=== PATIENT | male | born 1945 | race Caucasian/White ===

== ENCOUNTER 2018-03-12 08:45 | Inpatient (IN) | payer MEDICARE ==
[2018-03-24] MEDS ORDERED: CEFAZOLIN 2 GM/50 ML-DEXTROSE 2 GM in Premix Bag 1 BAG IVPB SCH (10:30)
[2018-03-24] MEDS ORDERED: Vancomycin HCl 1.5 GM in Sodium Chloride 0.9% 250 ML 300 ML IVPB SCH (10:30)
[2018-03-24] MEDS ORDERED: Sodium Chloride 0.9% 100 ML ONE (10:38)
[2018-03-24] MEDS ORDERED: Tranexamic Acid 1,000 MG/10 ML VIAL ONE (10:38)
[2018-03-24] MEDS ORDERED: CEFAZOLIN 2 GM/50 ML BAG ONE (10:38)
[2018-03-24] MEDS ORDERED: Promethazine HCl 25 MG/ML VIAL IM PRN ×2 (11:07→11:45)
[2018-03-24] MEDS ORDERED: HYDROcodone/Acetaminophen 10/325 mg Tablet PO PRN ×2 (11:07)
[2018-03-24] MEDS ORDERED: Zolpidem Tartrate 5 MG TAB PO PRN ×2 (11:07→11:45)
[2018-03-24] MEDS ORDERED: Ondansetron PF 4 MG/2 ML Vial IVP PRN ×2 (11:07→11:45)
[2018-03-24] MEDS ORDERED: traMADol HCl 50 MG TAB PO PRN ×2 (11:07→11:45)
[2018-03-24] MEDS ORDERED: Fentanyl 100 MCG/2 ML VIAL SLOW IVP PRN (11:07)
[2018-03-24] MEDS ORDERED: diphenhydrAMINE 25 MG CAP PO PRN ×2 (11:07→11:45)
[2018-03-24] MEDS ORDERED: Bupivacaine 0.75% W/DEXTROSE 8.25% 2 ML AMP ONE (11:27)
[2018-03-24] MEDS ORDERED: Midazolam HCl 5 mg/5 ml Vial ONE (11:36)
[2018-03-24] MEDS ORDERED: Fentanyl 100 MCG/2 ML VIAL ONE (11:37)
[2018-03-24] MEDS ORDERED: Acetaminophen 1,000 MG in Premix Bag 1 BAG IVPB PRN (11:44)
[2018-03-24] MEDS ORDERED: Promethazine HCl 25 MG SUPP PR PRN (11:45)
[2018-03-24] MEDS ORDERED: diphenhydrAMINE 50 MG/ML VIAL IM PRN (11:45)
[2018-03-24] MEDS ORDERED: Naloxone HCl 0.4 mg/ml Vial IV PRN (11:45)
[2018-03-24] MEDS ORDERED: diphenhydrAMINE 50 MG/ML VIAL IVP PRN (11:45)
[2018-03-24] MEDS ORDERED: Naloxone HCl 0.4 mg/ml Vial IVP PRN (11:45)
[2018-03-24] MEDS ORDERED: HYDROcodone/Acetaminophen 5/325 mg Tablet PO PRN (11:45)
[2018-03-24] MEDS ORDERED: Hydrocerin (Eucerin) Cream 120 gm Jar TOP PRN (11:45)
[2018-03-24] MEDS ORDERED: Bupivacaine 0.25% 10 ML VIAL EPIDURAL PRN (11:45)
[2018-03-24] MEDS ORDERED: Fentanyl/Bupivacaine 100 ML EPIDURAL ONE (13:35)
[2018-03-24] MEDS ORDERED: CEFAZOLIN 2 GM/50 ML BAG IVPB SCH (14:00)
[2018-03-24] MEDS ORDERED: Ketorolac Tromethamine 30 MG/ML VIAL IM SCH (14:00)
--- NOTE | 2018-03-24 14:28 | RAD ---
RIGHT HIP TWO VIEWS: History: 72-year-old male with history of post op total hip. FINDINGS/IMPRESSION: Recent post op total hip replacement without dislocation or periprosthetic fracture or other acute pr ocess. POS: [facility]
[2018-03-24] MEDS ORDERED: Ondansetron PF 4 MG/2 ML Vial ONE (15:09)
[2018-03-24 15:52] VITALS: BMI 31.1
[2018-03-24] MEDS: Sodium Chloride 0.9% 1,000 ML IV SCH ×2 (16:46→21:00)
--- NOTE | 2018-03-24 16:58 | OP ---
PREOPERATIVE DIAGNOSIS: Degenerative joint disease, right hip. POSTOPERATIVE DIAGNOSIS: Degenerative joint disease, right hip. SURGEON: Robin Camarena MD. SHREDDING MACHINE TENDER: Nick Mesa PA-C. BLOOD LOSS: 200 mL. ANESTHESIA: Spinal. TITLE OF PROCEDURE: Right total hip arthroplasty using an Accolade 3.5 stem with a 54 mm cup X3 line r and a 36 mm standard head. PROCEDURE IN DETAIL: After informed consent was obtained in the preoperative holding area, the patie nt was taken to the operative suite where spinal anesthesia was induced. The patient was then positi oned in the lateral decubitus position. The hip was then prepped and draped in usual sterile fashion . The patient received preoperative antibiotics. Prior to incision, time-out was called, and all me mbers of the surgical team agreed upon site, surgeon, and patient. After this, a longitudinal incisi on was made directly over the trochanter, noted by palpation extending 2 fingerbreadths above and bel ow the trochanter. The deeper subcutaneous layer was undermined with Bovie electrocautery. The ilio tibial band was encountered and incised sharply and the plane below this was developed bluntly. [facility] to hold this opened. The lateral aspect of the trochanter and the abduct or muscles were encountered and then reflected anteriorly off the trochanter using Bovie electrocaute ry. Once this was completed, the anterior capsule was then encountered and identified, and copious c apsulotomy was carried out, exposing the femoral neck and head. Dislocation maneuver was then perform ed and an in situ provisional neck cut was then made using the oscillating saw. Attention was then t urned to acetabular preparation and sequential reaming was carried out up to the appropriate diameter and a trial was then malleted into place with good firm resistance and no pullout. The permanent ac etabular shell was then malleted squarely into place, as was the appropriate liner. Once completed, the wound was copiously irrigated, and attention was then turned to femoral preparation. Flexion and external rotation was performed of the exposed thigh and femoral elevators were then placed at the pr oximal aspect of the wound. Canal finder was used to establish the length of the canal and sequentia l reaming was carried out, followed by broaching. Once the appropriate stability was established wit h the trial broaches with both flexion, extension and rotational stability, we did trial with neutral and 2 mm offset incremental necks. Once the appropriate size was decided upon, with good stability noted with flexion, extension, internal and external rotation and shuck being negative, we removed th e femoral trial broach and malletted into place the permanent prosthesis with good firm fit, which wa s also stable to rotation. Again, the hip felt very stable to flexion, extension, internal and exter nal rotation. Leg lengths appeared near anatomic clinically and we were quite happy with prosthesis placement. Copious irrigation was then carried out through the entirety of the wound. Primary closu re of the abductors was accomplished with interrupted #2 Vicryl [id number] stitches and the IT b and was then closed with interrupted #2 Vicryl, oversewn with a #2 running barbed Quill stitch. Subc utaneous fascia was closed with running barbed Quill stitch and a subcuticular Monocryl barbed Quill stitch was used for skin closure and augmented with skin cement. A sterile dressing was applied. The procedure was terminated without any complication. All counts were correct. The patient was awaken ed in the operative suite and taken to the recovery room in stable condition.
--- NOTE | 2018-03-24 19:38 | ULT ---
BILATERAL LOWER EXTREMITY VENOUS DUPLEX STUDY: 03/24/18 INDICATION: Bilateral lower extremity pain and edema. Recent hip surgery. Deep veins of both lower extremities show normal blood flow and compression with color doppler and sp ectral analysis and compression studies. There is no evidence of DVT. IMPRESSION: No evidence of lower extremity DVT. POS: [facility]
[2018-03-24] MEDS: CEFAZOLIN 2 GM/50 ML BAG IVPB SCH (20:57)
--- NOTE | 2018-03-24 20:57 | CON ---
DATE OF CONSULTATION: 03/24/2018 PRIMARY CARE PHYSICIAN: Andrew Ruiz M.D. ATTENDING PHYSICIAN: Robin Camarena M.D. REASON FOR CONSULT: Aid in medical management. HISTORY OF PRESENT ILLNESS: Mr. Maria is a pleasant 72-year-old gentleman that has a history of hypertension as well as coronary artery disease, and obstructive sleep apnea. He has been having di fficulty with pain in his right hip for quite some time. He has failed conservative treatment and he is being admitted for an elective right total hip replacement. When I see the patient, he is postop and essentially has no complaints at this time. In review of his preop evaluations, he was seen by Dr. Sharif prior to admission. He has a history of coronary artery disease, in which he has 3-vessel heart disease, which was deemed nonoperable due to previous episodes of what sounds like a cardiac ar rest following major surgery. For this reason, the patient had multiple stents placed. He was seen by Dr. Sharif and cleared for this surgery, which was done under epidural anesthesia. The patient cur rently denies any chest pain or difficulty breathing. He denies any headaches or dizziness. No naus ea, no vomiting. We have been asked to aid in medical management. REVIEW OF SYSTEMS: All systems were reviewed and are negative except for that mentioned in the histo ry of present illness. PAST MEDICAL HISTORY: Significant for coronary artery disease, hypertension, obstructive sleep apnea , diverticulosis, chronic kidney disease stage 3, anemia in chronic kidney disease, depression, and g astroesophageal reflux disease, and also history of what sounds like a severe angioedema and cardiac arrest, which would occur a day following a major surgery. PAST SURGICAL HISTORY: He has had multiple coronary stents, a lumbar decompression surgery, hemorrho id surgery, hernia repair, and cataract surgery. ALLERGIES: YULI INHIBITORS, CODEINE, HYDROCHLOROTHIAZIDE, and OLMESARTAN. FAMILY HISTORY: Significant for a father who had a blood cancer, heart disease also in his father. His mother had breast cancer and Alzheimer disease also runs in the family. SOCIAL HISTORY: He is a nonsmoker, nondrinker. He is and he would like to be a FULL CODE. CURRENT MEDICATIONS: Amlodipine 5 mg daily, aspirin 81 mg daily, Cymbalta 60 mg daily, Zetia 10 mg d aily, Lasix 40 mg daily, levothyroxine 50 mcg daily, metoprolol succinate 50 mg daily, rabeprazole 20 mg twice daily, and Flomax 0.4 mg daily. PHYSICAL EXAMINATION: GENERAL: He is alert and oriented. He appears to be in no acute distress. He is well developed and well nourished. VITAL SIGNS: Blood pressure was 150/89, heart rate 62, respiratory rate of 20, and temperature is 97 .3. HEENT: Pupils are equal, round, and reactive. Extraocular muscles are intact. Sclerae are anicteri c. Throat: There is no erythema, no exudates. NECK: No adenopathy, no bruits. LUNGS: He has got basilar wheezing and some rhonchi, but there were no rales. CARDIOVASCULAR: He had a normal S1 and S2. There is no S3 or S4. No murmurs, clicks, or rubs. ABDOMEN: Obese, it is soft, it is nontender, nondistended. Positive for bowel sounds. There is no rebound, no guarding. EXTREMITIES: His right leg is smaller in circumference than the left; however, there does not appear to be any pitting edema. There is no warmth, no erythema. He has got palpable dorsalis pedis pulse s bilaterally. NEUROLOGICAL: The exam is grossly nonfocal with his muscle strength being 5/5 in both of his upper a nd lower extremities. SKIN AND INTEGUMENT: There is no skin changes and no rashes. LABORATORY DATA: Currently, there are no labs to review. He did have blood work done on 03/19/2018, the CBC and chemistry panel was reviewed and essentially negative. His hemoglobin was slightly low at 12.8, hematocrit is 41.1, creatinine was 1.6. ASSESSMENT AND PLAN: This is a pleasant 72-year-old gentleman who is being admitted for a right tota l hip replacement. He has had a surgery done under epidural anesthesia. This was to avoid any cardi opulmonary compromise following surgery which has happened in the past. Clinically, the patient appe ars stable. Agree with restarting his medications from home. 1. For hypertension, again agree with restarting amlodipine and we will hold off on any p.r.n. medic ations for blood pressure unless his pressure is extremely elevated such as greater than 180 systolic due to his history of having what sounds like anaphylactoid type reactions. Hopefully, his blood pr essure can be managed with amlodipine alone. 2. Coronary artery disease. This appears to be clinically stable. We will continue aspirin and met oprolol. 3. Leg circumference discrepancy. It is unclear whether or not this is something that had been pres ent prior to admission. He has had lumbar surgery in the past and his right leg may actually have so me degree of muscle atrophy due to longstanding nerve damage. However, his who is at [facility] says his legs have been the same size. Therefore, we will go ahead and get a stat venous ultrasoun d to rule out deep venous thrombosis. 4. Chronic kidney disease. We will likely get a chemistry panel in the morning and follow his renal function periodically.
[2018-03-24] MEDS: Ferrous Gluconate 324 MG TAB PO SCH (20:59)
[2018-03-24] MEDS: Aspirin 81 mg Enteric Coated Tablet PO SCH (20:59)
[2018-03-25] MEDS: CEFAZOLIN 2 GM/50 ML BAG IVPB SCH (04:59)
[2018-03-25 05:47] LABS: Hemoglobin 11.9 g/dL (14.0-18.0); Mean Corpuscular HGB CONC 31.3 g/dL (32.0-36.0); Mean Corpuscular Hemoglobin 25.7 pg (27.0-31.0); Mean Corpuscular Volume 82.1 fL (78.0-98.0); Mean Platelet Volume 7.6 fL (7.4-10.4); Platelet Count 219 thou/uL (130-400); Red Blood Cell (RBC) Count 4.62 mill/uL (4.70-6.10); White Blood Cell (WBC) Count 11.2 thou/uL (4.8-10.8)
[2018-03-25 06:05] LABS: Anion Gap 12 mmol/L (10-20); BUN (Urea Nitrogen) 23 mg/dL (8.4-25.7); Calc. Creatinine Clearance 63 mL/min (70-130); Calcium 8.7 mg/dL (7.8-10.44); Carbon Dioxide 24 mmol/L (23-31); Chloride 107 mmol/L (98-107); Estimated GFR-MDRD 45; Glucose 113 mg/dL (83-110); Potassium 4.5 mmol/L (3.5-5.1); Sodium 138 mmol/L (136-145)
[2018-03-25] MEDS: Fentanyl/Bupivacaine 100 ML EPIDURAL SCH ×2 (06:52→22:48)
[2018-03-25] MEDS: Sodium Chloride 0.9% 1,000 ML IV SCH ×2 (07:40→10:49)
[2018-03-25] MEDS: HYDROcodone/Acetaminophen 5/325 mg Tablet PO PRN (07:49)
[2018-03-25] MEDS: DULoxetine 60 MG CAP PO SCH (08:27)
[2018-03-25] MEDS: Ferrous Gluconate 324 MG TAB PO SCH ×2 (08:27→19:54)
[2018-03-25] MEDS: Aspirin 81 mg Enteric Coated Tablet PO SCH ×2 (08:27→19:53)
[2018-03-25] MEDS: Multivitamin W/ Minerals 1 TAB PO SCH (08:27)
[2018-03-25] MEDS: Senokot S 8.6-50 MG TAB PO SCH ×2 (08:27→19:54)
[2018-03-25] MEDS: Levothyroxine Sodium 50 MCG TAB PO SCH (08:28)
[2018-03-25] MEDS: Amlodipine 5 MG TAB PO SCH (08:28)
[2018-03-25] MEDS: Tamsulosin HCl 0.4 MG CAP PO SCH (08:28)
[2018-03-25] MEDS: Furosemide 40 MG TAB PO SCH (08:28)
[2018-03-25] MEDS: Ezetimibe 10 MG TAB PO SCH (08:28)
[2018-03-25] MEDS ORDERED: Aspirin 81 mg Enteric Coated Tablet PO SCH (09:00)
[2018-03-25] MEDS: traMADol HCl 50 MG TAB PO PRN (09:16)
--- NOTE | 2018-03-25 13:44 | PDOC.PN ---
- Subjective Encounter Start Date: 03/25/18 Encounter Start Time: 13:40 Mr. Maria was seen today in follow-up medical management following right hip replacement. He is a bit drowsy after receiving medication for pain. He denies feeling short of breath. - Objective MAR Reviewed: Yes Vital Signs & Weight: Vital Signs (12 hours) Temp Pulse Pulse Pulse Resp BP BP 03/25/18 12:15 69 03/25/18 11:41 62 22 H 03/25/18 08:47 72 67 120/75 03/25/18 08:28 80 153/87 H 03/25/18 08:00 03/25/18 07:25 98.5 F 80 24 H 03/25/18 07:14 03/25/18 03:50 98.2 F 86 18 BP BP BP Pulse Ox 03/25/18 12:15 113/58 L 03/25/18 11:41 96/54 L 97 03/25/18 08:47 116/70 03/25/18 08:28 03/25/18 08:00 93 L 03/25/18 07:25 153/87 H 93 L 03/25/18 07:14 95 03/25/18 03:50 135/75 95 Weight Weight 223 lb I&O: 03/24/18 03/25/18 03/26/18 06:59 06:59 06:59 Intake Total 1487.5 Output Total 300 1100 Balance 1187.5 -1100 Result Diagrams: 03/25/18 04:56 03/25/18 04:56 Phys Exam - Physical Examination HEENT: PERRLA Respiratory: no wheezing, no rales, no rhonchi, clear to auscultation bilateral Cardiovascular: RRR, no significant murmur, no rub Gastrointestinal: soft, non-tender, no distention, positive bowel sounds Musculoskeletal: no edema Dx/Plan (1) Hypertension Code(s): I10 - ESSENTIAL (PRIMARY) HYPERTENSION Status: Chronic (2) Coronary artery disease Code(s): I25.10 - ATHSCL HEART DISEASE OF [place] CORONARY ARTERY W/O ANG PCTRS Status: Chronic (3) Obstructive sleep apnea Code(s): G47.33 - OBSTRUCTIVE SLEEP APNEA (ADULT) (PEDIATRIC) Status: Chronic (4) Chronic kidney disease, stage 3 Code(s): N18.3 - CHRONIC KIDNEY DISEASE, STAGE 3 (MODERATE) Status: Chronic (5) Status post right hip replacement Code(s): Z96.641 - PRESENCE OF RIGHT ARTIFICIAL HIP JOINT Status: Acute - Plan * HTN- blood pressure has been labile, but is trending down- will continue to monitor * CAD- stable * PRISCILLA- stable * CKD stage 3- renal function is stable. * S/P Right hip replacement- continue PT/OT
[2018-03-26] MEDS: Sodium Chloride 0.9% 1,000 ML IV SCH ×3 (00:18→22:18)
[2018-03-26 05:40] LABS: Hemoglobin 10.9 g/dL (14.0-18.0); Mean Corpuscular HGB CONC 31.7 g/dL (32.0-36.0); Mean Corpuscular Volume 82.2 fL (78.0-98.0); Mean Platelet Volume 7.7 fL (7.4-10.4); Platelet Count 169 thou/uL (130-400); RBC Distribution Width 15.8 % (11.5-14.5); Red Blood Cell (RBC) Count 4.17 mill/uL (4.70-6.10)
[2018-03-26] MEDS ORDERED: Bisacodyl 10 MG SUPP PR PRN (07:50)
[2018-03-26] MEDS ORDERED: Polyethylene Glycol 3350 17 GM Packet PO PRN (08:01)
[2018-03-26] MEDS: Ferrous Gluconate 324 MG TAB PO SCH ×2 (08:18→20:05)
[2018-03-26] MEDS: Polyethylene Glycol 3350 17 GM Packet PO SCH ×2 (08:18→20:05)
[2018-03-26] MEDS: Senokot S 8.6-50 MG TAB PO SCH ×2 (08:18→20:05)
[2018-03-26] MEDS: Aspirin 81 mg Enteric Coated Tablet PO SCH ×2 (08:19→20:05)
[2018-03-26] MEDS: Multivitamin W/ Minerals 1 TAB PO SCH (08:19)
[2018-03-26] MEDS: Furosemide 40 MG TAB PO SCH (08:19)
[2018-03-26] MEDS: DULoxetine 60 MG CAP PO SCH (08:19)
[2018-03-26] MEDS: Amlodipine 5 MG TAB PO SCH (08:19)
[2018-03-26] MEDS: Tamsulosin HCl 0.4 MG CAP PO SCH (08:19)
[2018-03-26] MEDS: Levothyroxine Sodium 50 MCG TAB PO SCH (08:19)
[2018-03-26] MEDS: Ezetimibe 10 MG TAB PO SCH (08:19)
[2018-03-26] MEDS: HYDROcodone/Acetaminophen 5/325 mg Tablet PO PRN ×2 (08:24→15:40)
--- NOTE | 2018-03-26 11:58 | PDOC.PN ---
- Subjective Encounter Start Date: 03/26/18 Encounter Start Time: 08:30 Patient seen and examined for med mngt. No CP/SOB. No new complaints. No overnight events - Objective MAR Reviewed: Yes Vital Signs & Weight: Vital Signs (12 hours) Temp Pulse Resp BP BP Pulse Ox 03/26/18 08:19 76 126/75 03/26/18 07:26 94 L 03/26/18 07:24 98.8 F 76 18 126/75 92 L Weight Admit Weight 223 lb Weight 223 lb I&O: 03/25/18 03/26/18 03/27/18 06:59 06:59 06:59 Intake Total 1487.5 1790 Output Total 300 2250 Balance 1187.5 -460 Result Diagrams: 03/26/18 04:59 03/25/18 04:56 Phys Exam - Physical Examination Constitutional: NAD Respiratory: no wheezing, no rhonchi Cardiovascular: RRR, no rub Gastrointestinal: soft, non-tender, positive bowel sounds Musculoskeletal: no edema Neurological: moves all 4 limbs Dx/Plan - Plan DVT proph w/SCDs 1. HTN 2. CKD 3 3. PRISCILLA - on CPAP 4. CAD / HLD 5. Hypothyroidism / Depression / GERD / Constipation PLAN: Cont Amlodipine with Toprol Cont CPAP HS Add Miralax Cont other meds as below Review of Systems - Review of Systems Respiratory: negative: Cough, Dry, Shortness of Breath, Hemoptysis, SOB with Excertion, Pleuritic Pain, Sputum, Wheezing Cardiovascular: negative: chest pain, palpitations, orthopnea, paroxysmal nocturnal dyspnea, edema, light headedness, other - Medications/Allergies Allergies/Adverse Reactions: Allergies Allergy/AdvReac Type Severity Reaction Status Date / Time YULI Inhibitors Allergy Intermediate EDEMA Verified 03/19/18 12:08 codeine Allergy Intermediate BAD Verified 03/19/18 12:08 HEADACHE hydrochlorothiazide Allergy Intermediate HALLUCINATI Verified 03/19/18 12:08 ONS olmesartan Allergy Intermediate SWELLING Verified 03/19/18 12:08 Medications: Current Medications Acetaminophen (Tylenol) 650 mg PO Q4H PRN PRN Reason: VELA/ T > 101F; Mild Pain (1-3) Hydrocodone Bitart/Acetaminophen ([place] 5/325) 1 tab PO Q4H PRN PRN Reason: Mild Pain 0-3 Last Admin: 03/24/18 16:46 Dose: 1 tab Hydrocodone Bitart/Acetaminophen ([place] 5/325) 2 tab PO Q4H PRN PRN Reason: For Moderate Pain 4-6 Last Admin: 03/26/18 08:24 Dose: 2 tab Amlodipine Besylate (Norvasc) 5 mg PO DAILY [facility] Last Admin: 03/26/18 08:19 Dose: 5 mg Aspirin (Ecotrin) 81 mg PO BID [facility] Last Admin: 03/26/18 08:19 Dose: 81 mg Bisacodyl (Dulcolax) 10 mg [place] DAILYPRN PRN PRN Reason: Constipation Diphenhydramine HCl (Benadryl) 25 mg PO Q3H PRN PRN Reason: Itching Diphenhydramine HCl (Benadryl) 25 mg IM Q3H PRN PRN Reason: Itching Diphenhydramine HCl (Benadryl) 25 mg IVP Q3H PRN PRN Reason: Itching Duloxetine HCl (Cymbalta) 60 mg PO QAM [facility] Last Admin: 03/26/18 08:19 Dose: 60 mg Ezetimibe (Zetia) 10 mg PO DAILY [facility] Last Admin: 03/26/18 08:19 Dose: 10 mg Emollient Cream (Hydrocerin Cream) 0 gm TOP PRN PRN PRN Reason: Itching Fentanyl (Sublimaze) 50 mcg SLOW IVP Q30MIN PRN PRN Reason: Moderate Pain (4-6) Last Admin: 03/24/18 17:47 Dose: 50 mcg Ferrous Gluconate (Fergon) 324 mg PO BID [facility] Last Admin: 03/26/18 08:18 Dose: 324 mg Furosemide (Lasix) 40 mg PO DAILY [facility] Last Admin: 03/26/18 08:19 Dose: 40 mg Sodium Chloride (Normal Saline 0.9%) 1,000 mls @ 100 mls/hr IV .Q10H [facility] Last Admin: 03/26/18 08:26 Dose: Not Given Fentanyl Citrate (Fentanyl/Bupivacaine) 100 mls @ 6 mls/hr EPIDURAL INF [facility] Last Admin: 03/25/18 22:48 Dose: 100 mls Iron/Minerals/Multivitamins (Theragran M) 1 tab PO DAILY [facility] Last Admin: 03/26/18 08:19 Dose: 1 tab Lactulose (Lactulose) 10 gm PO DAILY [facility] Last Admin: 03/26/18 08:18 Dose: 10 gm Levothyroxine Sodium (Synthroid) 50 mcg PO DAILY [facility] Last Admin: 03/26/18 08:19 Dose: 50 mcg Metoprolol Succinate (Toprol Xl) 50 mg PO HS [facility] Last Admin: 03/25/18 19:54 Dose: 50 mg Naloxone HCl (Narcan) 0.2 mg IV Q5MIN PRN PRN Reason: RR <=8 OR OBTUNDED/UNAROUSABLE Naloxone HCl (Narcan) 0.1 mg IVP Q15MIN PRN PRN Reason: URINARY RETENTION Ondansetron HCl (Zofran) 4 mg IVP Q6H PRN PRN Reason: Nausea/Vomiting Pantoprazole Sodium (Protonix) 40 mg PO BID [facility] Last Admin: 03/26/18 08:19 Dose: 40 mg Polyethylene Glycol (Miralax) 17 gm PO BID [facility] Last Admin: 03/26/18 08:18 Dose: 17 gm Polyethylene Glycol (Miralax) 17 gm PO DAILY PRN PRN Reason: Constipation Promethazine HCl (Phenergan) 12.5 mg IM Q4H PRN PRN Reason: Nausea Promethazine HCl (Phenergan Suppository) 25 mg [place] Q4H PRN PRN Reason: Nausea/Vomiting Senna/Docusate Sodium (Senokot S) 2 tab PO BID [facility] Last Admin: 03/26/18 08:18 Dose: 2 tab Sodium Chloride (Flush - Normal Saline) 10 ml IVF PRN PRN PRN Reason: Saline Flush Tamsulosin HCl (Flomax) 0.4 mg PO DAILY [facility] Last Admin: 03/26/18 08:19 Dose: 0.4 mg Tramadol HCl (Ultram) 50 mg PO Q6H PRN PRN Reason: Mild Pain 1-3 1ST LINE Tramadol HCl (Ultram) 100 mg PO Q6H PRN PRN Reason: Moderate Pain 4-6 1ST LINE Last Admin: 03/25/18 09:16 Dose: 100 mg Zolpidem Tartrate (Ambien) 5 mg PO HSPRN PRN PRN Reason: Insomnia
[2018-03-26] MEDS: Fentanyl/Bupivacaine 100 ML EPIDURAL SCH (15:34)
[2018-03-26] MEDS: traMADol HCl 50 MG TAB PO PRN (17:40)
[2018-03-27] MEDS: Fentanyl/Bupivacaine 100 ML EPIDURAL SCH (04:42)
[2018-03-27] MEDS: HYDROcodone/Acetaminophen 5/325 mg Tablet PO PRN ×3 (04:42→21:08)
[2018-03-27 05:54] LABS: Hemoglobin 10.6 g/dL (14.0-18.0); Mean Corpuscular HGB CONC 30.8 g/dL (32.0-36.0); Mean Corpuscular Hemoglobin 25.3 pg (27.0-31.0); Mean Corpuscular Volume 82.1 fL (78.0-98.0); Platelet Count 177 thou/uL (130-400); RBC Distribution Width 15.8 % (11.5-14.5); Red Blood Cell (RBC) Count 4.18 mill/uL (4.70-6.10); White Blood Cell (WBC) Count 9.4 thou/uL (4.8-10.8)
[2018-03-27] MEDS: Senokot S 8.6-50 MG TAB PO SCH ×2 (08:18→21:07)
[2018-03-27] MEDS: Ezetimibe 10 MG TAB PO SCH (08:18)
[2018-03-27] MEDS: Amlodipine 5 MG TAB PO SCH (08:19)
[2018-03-27] MEDS: DULoxetine 60 MG CAP PO SCH (08:19)
[2018-03-27] MEDS: Ferrous Gluconate 324 MG TAB PO SCH ×2 (08:19→21:07)
[2018-03-27] MEDS: Aspirin 81 mg Enteric Coated Tablet PO SCH ×2 (08:20→21:07)
[2018-03-27] MEDS: Furosemide 40 MG TAB PO SCH (08:20)
[2018-03-27] MEDS: Polyethylene Glycol 3350 17 GM Packet PO SCH ×2 (08:20→21:07)
[2018-03-27] MEDS: Multivitamin W/ Minerals 1 TAB PO SCH (08:20)
[2018-03-27] MEDS: Tamsulosin HCl 0.4 MG CAP PO SCH (08:20)
[2018-03-27] MEDS: Levothyroxine Sodium 50 MCG TAB PO SCH (08:20)
[2018-03-27] MEDS: Sodium Chloride 0.9% 1,000 ML IV SCH ×2 (16:54→20:15)
[2018-03-28] MEDS: HYDROcodone/Acetaminophen 5/325 mg Tablet PO PRN ×2 (02:00→08:21)
[2018-03-28] MEDS: Sodium Chloride 0.9% 1,000 ML IV SCH ×2 (04:17→18:56)
[2018-03-28 06:01] LABS: Hemoglobin 10.8 g/dL (14.0-18.0); Mean Corpuscular HGB CONC 32.2 g/dL (32.0-36.0); Mean Corpuscular Hemoglobin 26.3 pg (27.0-31.0); Mean Corpuscular Volume 81.7 fL (78.0-98.0); Mean Platelet Volume 7.5 fL (7.4-10.4); Platelet Count 227 thou/uL (130-400); RBC Distribution Width 15.4 % (11.5-14.5); Red Blood Cell (RBC) Count 4.13 mill/uL (4.70-6.10)
[2018-03-28] MEDS: Levothyroxine Sodium 50 MCG TAB PO SCH (08:21)
[2018-03-28] MEDS: Ezetimibe 10 MG TAB PO SCH (08:21)
[2018-03-28] MEDS: Furosemide 40 MG TAB PO SCH (08:21)
[2018-03-28] MEDS: DULoxetine 60 MG CAP PO SCH (08:22)
[2018-03-28] MEDS: Aspirin 81 mg Enteric Coated Tablet PO SCH ×2 (08:22→21:36)
[2018-03-28] MEDS: Senokot S 8.6-50 MG TAB PO SCH ×2 (08:22→21:37)
[2018-03-28] MEDS: Tamsulosin HCl 0.4 MG CAP PO SCH (08:22)
[2018-03-28] MEDS: Ferrous Gluconate 324 MG TAB PO SCH ×2 (08:22→21:37)
[2018-03-28] MEDS: Amlodipine 5 MG TAB PO SCH (08:22)
[2018-03-28] MEDS: Multivitamin W/ Minerals 1 TAB PO SCH (08:23)
[2018-03-28] MEDS: Polyethylene Glycol 3350 17 GM Packet PO SCH ×2 (08:23→21:39)
[2018-03-28] MEDS: Acetaminophen 325 MG TAB PO PRN ×2 (14:14→21:47)
[2018-03-28] MEDS: traMADol HCl 50 MG TAB PO PRN ×2 (17:24→23:28)
[2018-03-28] MEDS ORDERED: Fleet Enema 133 ML BOT PR PRN (18:50)
--- NOTE | 2018-03-28 18:50 | PDOC.PN ---
- Subjective Encounter Start Date: 03/28/18 Encounter Start Time: 10:30 Patient seen and examined for med mngt. No new complaints. No overnight events - Objective MAR Reviewed: Yes Vital Signs & Weight: Vital Signs (12 hours) Temp Pulse Resp BP BP Pulse Ox 03/28/18 15:15 98.2 F 85 16 130/76 94 L 03/28/18 11:30 97.9 F 76 16 138/78 96 03/28/18 08:22 66 125/77 03/28/18 08:05 98 F 73 12 125/77 94 L 03/28/18 08:00 94 L Weight Admit Weight 223 lb Weight 223 lb I&O: 03/27/18 03/28/18 03/29/18 06:59 06:59 06:59 Intake Total 1950 500 480 Output Total 1450 300 Balance 500 200 480 Result Diagrams: 03/28/18 05:42 03/25/18 04:56 Phys Exam - Physical Examination Constitutional: NAD Dx/Plan - Plan 1. HTN 2. CKD 3 3. PRISCILLA - on CPAP 4. CAD / HLD 5. Hypothyroidism / Depression / GERD / Constipation PLAN: Treat constipation Cont Amlodipine with Toprol Cont CPAP HS Cont other meds as below Review of Systems - Review of Systems Respiratory: negative: Cough, Dry, Shortness of Breath, Hemoptysis, SOB with Excertion, Pleuritic Pain, Sputum, Wheezing Cardiovascular: negative: chest pain, palpitations, orthopnea, paroxysmal nocturnal dyspnea, edema, light headedness, other Gastrointestinal: Constipation. negative: Nausea, Vomiting, Abdominal Pain, Diarrhea, Melena, Hematochezia, Other - Medications/Allergies Allergies/Adverse Reactions: Allergies Allergy/AdvReac Type Severity Reaction Status Date / Time YULI Inhibitors Allergy Intermediate EDEMA Verified 03/19/18 12:08 codeine Allergy Intermediate BAD Verified 03/19/18 12:08 HEADACHE hydrochlorothiazide Allergy Intermediate HALLUCINATI Verified 03/19/18 12:08 ONS olmesartan Allergy Intermediate SWELLING Verified 03/19/18 12:08 Medications: Current Medications Acetaminophen (Tylenol) 650 mg PO Q4H PRN PRN Reason: VELA/ T > 101F; Mild Pain (1-3) Last Admin: 03/28/18 14:14 Dose: 650 mg Hydrocodone Bitart/Acetaminophen ([place] 5/325) 1 tab PO Q4H PRN PRN Reason: Mild Pain 0-3 Last Admin: 03/24/18 16:46 Dose: 1 tab Hydrocodone Bitart/Acetaminophen ([place] 5/325) 2 tab PO Q4H PRN PRN Reason: For Moderate Pain 4-6 Last Admin: 03/28/18 08:21 Dose: 2 tab Amlodipine Besylate (Norvasc) 5 mg PO DAILY [facility] Last Admin: 03/28/18 08:22 Dose: 5 mg Aspirin (Ecotrin) 81 mg PO BID [facility] Last Admin: 03/28/18 08:22 Dose: 81 mg Bisacodyl (Dulcolax) 10 mg [place] DAILYPRN PRN PRN Reason: Constipation Diphenhydramine HCl (Benadryl) 25 mg PO Q3H PRN PRN Reason: Itching Diphenhydramine HCl (Benadryl) 25 mg IM Q3H PRN PRN Reason: Itching Diphenhydramine HCl (Benadryl) 25 mg IVP Q3H PRN PRN Reason: Itching Duloxetine HCl (Cymbalta) 60 mg PO QAM [facility] Last Admin: 03/28/18 08:22 Dose: 60 mg Ezetimibe (Zetia) 10 mg PO DAILY [facility] Last Admin: 03/28/18 08:21 Dose: 10 mg Emollient Cream (Hydrocerin Cream) 0 gm TOP PRN PRN PRN Reason: Itching Fentanyl (Sublimaze) 50 mcg SLOW IVP Q30MIN PRN PRN Reason: Moderate Pain (4-6) Last Admin: 03/24/18 17:47 Dose: 50 mcg Ferrous Gluconate (Fergon) 324 mg PO BID [facility] Last Admin: 03/28/18 08:22 Dose: 324 mg Furosemide (Lasix) 40 mg PO DAILY [facility] Last Admin: 03/28/18 08:21 Dose: 40 mg Sodium Chloride (Normal Saline 0.9%) 1,000 mls @ 100 mls/hr IV .Q10H [facility] Last Admin: 03/28/18 04:17 Dose: Not Given Fentanyl Citrate (Fentanyl/Bupivacaine) 100 mls @ 7 mls/hr EPIDURAL INF [facility] Last Admin: 03/27/18 04:42 Dose: 100 mls Iron/Minerals/Multivitamins (Theragran M) 1 tab PO DAILY [facility] Last Admin: 03/28/18 08:23 Dose: 1 tab Lactulose (Lactulose) 10 gm PO DAILY [facility] Last Admin: 03/28/18 08:23 Dose: 10 gm Levothyroxine Sodium (Synthroid) 50 mcg PO DAILY [facility] Last Admin: 03/28/18 08:21 Dose: 50 mcg Metoprolol Succinate (Toprol Xl) 25 mg PO HS [facility] Last Admin: 03/27/18 21:07 Dose: 25 mg Naloxone HCl (Narcan) 0.2 mg IV Q5MIN PRN PRN Reason: RR <=8 OR OBTUNDED/UNAROUSABLE Naloxone HCl (Narcan) 0.1 mg IVP Q15MIN PRN PRN Reason: URINARY RETENTION Ondansetron HCl (Zofran) 4 mg IVP Q6H PRN PRN Reason: Nausea/Vomiting Pantoprazole Sodium (Protonix) 40 mg PO BID [facility] Last Admin: 03/28/18 08:22 Dose: 40 mg Polyethylene Glycol (Miralax) 17 gm PO BID [facility] Last Admin: 03/28/18 08:23 Dose: 17 gm Polyethylene Glycol (Miralax) 17 gm PO DAILY PRN PRN Reason: Constipation Promethazine HCl (Phenergan) 12.5 mg IM Q4H PRN PRN Reason: Nausea Promethazine HCl (Phenergan Suppository) 25 mg [place] Q4H PRN PRN Reason: Nausea/Vomiting Senna/Docusate Sodium (Senokot S) 2 tab PO BID [facility] Last Admin: 03/28/18 08:22 Dose: 2 tab Sodium Chloride (Flush - Normal Saline) 10 ml IVF PRN PRN PRN Reason: Saline Flush Tamsulosin HCl (Flomax) 0.4 mg PO DAILY [facility] Last Admin: 03/28/18 08:22 Dose: 0.4 mg Tramadol HCl (Ultram) 50 mg PO Q6H PRN PRN Reason: Mild Pain 1-3 1ST LINE Tramadol HCl (Ultram) 100 mg PO Q6H PRN PRN Reason: Moderate Pain 4-6 1ST LINE Last Admin: 03/28/18 17:24 Dose: 100 mg Zolpidem Tartrate (Ambien) 5 mg PO HSPRN PRN PRN Reason: Insomnia
[2018-03-29] MEDS: Sodium Chloride 0.9% 1,000 ML IV SCH ×3 (03:35→22:18)
[2018-03-29 05:34] LABS: Hemoglobin 11.3 g/dL (14.0-18.0); Mean Corpuscular HGB CONC 32.2 g/dL (32.0-36.0); Mean Corpuscular Hemoglobin 26.4 pg (27.0-31.0); Mean Corpuscular Volume 81.9 fL (78.0-98.0); Mean Platelet Volume 7.3 fL (7.4-10.4); Platelet Count 274 thou/uL (130-400); RBC Distribution Width 15.3 % (11.5-14.5); Red Blood Cell (RBC) Count 4.29 mill/uL (4.70-6.10); White Blood Cell (WBC) Count 7.9 thou/uL (4.8-10.8)
[2018-03-29] MEDS: Amlodipine 5 MG TAB PO SCH (09:19)
[2018-03-29] MEDS: Polyethylene Glycol 3350 17 GM Packet PO SCH ×2 (09:19→21:01)
[2018-03-29] MEDS: Furosemide 40 MG TAB PO SCH (09:20)
[2018-03-29] MEDS: DULoxetine 60 MG CAP PO SCH (09:20)
[2018-03-29] MEDS: Senokot S 8.6-50 MG TAB PO SCH ×2 (09:20→21:01)
[2018-03-29] MEDS: Levothyroxine Sodium 50 MCG TAB PO SCH (09:20)
[2018-03-29] MEDS: Ferrous Gluconate 324 MG TAB PO SCH ×2 (09:20→20:56)
[2018-03-29] MEDS: Aspirin 81 mg Enteric Coated Tablet PO SCH ×2 (09:20→20:55)
[2018-03-29] MEDS: Ezetimibe 10 MG TAB PO SCH (09:20)
[2018-03-29] MEDS: Multivitamin W/ Minerals 1 TAB PO SCH (09:20)
[2018-03-29] MEDS: Tamsulosin HCl 0.4 MG CAP PO SCH (09:20)
[2018-03-29] MEDS: Acetaminophen 325 MG TAB PO PRN (22:37)
[2018-03-30] MEDS: Sodium Chloride 0.9% 1,000 ML IV SCH ×2 (04:29→16:59)
[2018-03-30] MEDS: DULoxetine 60 MG CAP PO SCH (08:36)
[2018-03-30] MEDS: Levothyroxine Sodium 50 MCG TAB PO SCH (08:36)
[2018-03-30] MEDS: Ezetimibe 10 MG TAB PO SCH (08:36)
[2018-03-30] MEDS: Multivitamin W/ Minerals 1 TAB PO SCH (08:36)
[2018-03-30] MEDS: Furosemide 40 MG TAB PO SCH (08:37)
[2018-03-30] MEDS: Amlodipine 5 MG TAB PO SCH (08:37)
[2018-03-30] MEDS: Ferrous Gluconate 324 MG TAB PO SCH (08:37)
[2018-03-30] MEDS: Tamsulosin HCl 0.4 MG CAP PO SCH (08:37)
[2018-03-30] MEDS: Aspirin 81 mg Enteric Coated Tablet PO SCH (08:37)
[2018-03-30] MEDS: Polyethylene Glycol 3350 17 GM Packet PO SCH (08:40)
[2018-03-30] MEDS: Senokot S 8.6-50 MG TAB PO SCH (08:41)
[2018-03-30 16:29] VITALS: BP 134/71; TEMP 98.4
--- NOTE | 2018-04-01 14:39 | DIS ---
DATE OF ADMISSION: 03/24/2018 DATE OF DISCHARGE: 03/30/2018 ATTENDING PHYSICIAN: Robin Camarena MD REASON FOR ADMISSION: Right total hip replacement. PREOPERATIVE DIAGNOSIS: Right hip degenerative joint disease. POSTOPERATIVE DIAGNOSIS: Right hip degenerative joint disease. PROCEDURE PERFORMED: Right total hip arthroplasty. BRIEF HOSPITAL COURSE: This is a 72-year-old male, who was indicated for the above-mentioned procedure. Postoperatively, he was admitted to the surgical floor where he received postoperative antibiotics. He worked with physical therapy and occupational therapy. His pain was controlled. No complications were incurred. He was approved for alf facility and was transferred to alf facility 6 days after his surgery of which he spent in the hospital for the . DISCHARGE DISPOSITION: [facility] facility. DISCHARGE CONDITION: Stable. DISCHARGE INSTRUCTIONS: The patient will follow up in [facility] in 2 to 3 weeks. He will continue to work on physical therapy exercises at alf facility. DISCHARGE MEDICATIONS: See MAR. Job ID: [id number]
== END 2018-03-30 18:00 | disposition home health service (06) | DRG 470 ==
LOC: SURG A 03-24 08:55 → SJJU 03-24 14:48
PROVIDERS: ADMIT Orthopaedic Surgery; ATTEND Orthopaedic Surgery
PROC: 0SR904Z Replacement of Right Hip Joint with Ceramic on Polyethylene Synthetic Substitute, Open Approach (ICD-10-PCS; principal; 2018-03-24)
DX: M16.11 Unilateral primary osteoarthritis, right hip (principal); N25.81 Secondary hyperparathyroidism of renal origin; I12.9 Hypertensive chronic kidney disease with stage 1 through stage 4 chronic kidney disease, or unspecified chronic kidney disease; N18.3 Chronic kidney disease, stage 3 (moderate); I25.10 Atherosclerotic heart disease of native coronary artery without angina pectoris; G47.33 Obstructive sleep apnea (adult) (pediatric); Z88.8 Allergy status to other drugs, medicaments and biological substances; Z88.5 Allergy status to narcotic agent; Z95.5 Presence of coronary angioplasty implant and graft; Z79.899 Other long term (current) drug therapy; Z79.82 Long term (current) use of aspirin; K57.90 Diverticulosis of intestine, part unspecified, without perforation or abscess without bleeding; E78.5 Hyperlipidemia, unspecified; E03.9 Hypothyroidism, unspecified; D64.9 Anemia, unspecified; M48.061 Spinal stenosis, lumbar region without neurogenic claudication; Z87.891 Personal history of nicotine dependence; K59.00 Constipation, unspecified; K21.9 Gastro-esophageal reflux disease without esophagitis; F32.9 Major depressive disorder, single episode, unspecified
CPT/HCPCS: 36415; 80048; 85027; 86850; 86900; 86901; 90471; 90662; 93970; C1776; G0008; G8978-GP-CL; G8979-GP-CJ; G8987-GO-CL; G8988-GO-CI; J1200; J2250; J2405; J3010; J3370; J3490; J7050

== ENCOUNTER 2018-03-19 09:12 | Outpatient (CLI) | payer MEDICARE ==
[2018-03-19 13:43] LABS: #Eosinphils 0.2 thou/uL (0.0-0.7); #Lymphocytes 1.5 thou/uL (1.20-3.40); #Monocytes 1.1 thou/uL (0.11-0.59); #Neutrophils 5.8 thou/uL (1.40-6.50); %Basophils 0.1 % (0.0-1.0); %Eosinophils 2.1 % (0.0-10.0); %Lymphocytes 17.3 % (21.0-51.0); %Monocytes 12.6 % (0.0-10.0); %Neutrophils 67.9 % (42.0-75.0); Hemoglobin 12.8 g/dL (14.0-18.0); Mean Corpuscular HGB CONC 31.3 g/dL (32.0-36.0); Mean Corpuscular Hemoglobin 25.3 pg (27.0-31.0); Mean Corpuscular Volume 81.1 fL (78.0-98.0); Mean Platelet Volume 7.8 fL (7.4-10.4); Platelet Count 242 thou/uL (130-400); RBC Distribution Width 16.1 % (11.5-14.5); Red Blood Cell (RBC) Count 5.07 mill/uL (4.70-6.10); White Blood Cell (WBC) Count 8.6 thou/uL (4.8-10.8)
[2018-03-19 13:54] LABS: Bilirubin Negative (Negative); Blood, Urine Negative (Negative); Clarity CLEAR (Clear); Glucose, Urine (Dipstick) Negative (Negative); Leukocyte Negative (Negative); Nitrite Negative (Negative); Protein, Urine (Dipstick) 100 mg/dL (Neg-Trace); Specific Gravity, Urine 1.021 (1.002-1.036)
[2018-03-19 13:56] LABS: Prothrombin Time 12.8 SEC (12.0-14.7)
[2018-03-19 14:01] LABS: Anion Gap 12 mmol/L (10-20); BUN (Urea Nitrogen) 25 mg/dL (8.4-25.7); Calc. Creatinine Clearance 0 mL/min (70-130); Calcium 9.4 mg/dL (7.8-10.44); Carbon Dioxide 26 mmol/L (23-31); Chloride 105 mmol/L (98-107); Estimated GFR-MDRD 43; Glucose 112 mg/dL (83-110); Potassium 3.9 mmol/L (3.5-5.1); Sodium 139 mmol/L (136-145)
[2018-03-19 14:02] LABS: Bacteria/HPF None Seen HPF (None Seen); Hyaline Casts/LPF 4-6 HYALINE CAST LPF (0-3 Hyaline); Pathc Cast-AUWi Flag 1.01 (0-2.49); RBC/HPF 0-3 HPF (0-3); Squamous Epithelial 0-3 HPF (0-3); WBC/HPF 0-3 HPF (0-3)
--- NOTE | 2018-03-19 14:24 | RAD ---
CHEST 2 VIEWS: Date: 03/19/18 HISTORY: Preop. COMPARISON: 09/03/06. FINDINGS: Cardiac silhouette is enlarged. Pulmonary vasculature upper limits of normal. Mediastinum is midline. No confluent air space consolidation, pneumothorax, or pleural fluid. IMPRESSION: 1. Cardiomegaly. 2. No active cardiopulmonary abnormalities are otherwise demonstrated. POS: [facility]
== END 2018-03-19 09:13 | disposition home or self-care (01) ==
LOC: LABBT 09:12
PROVIDERS: ATTEND Orthopaedic Surgery
DX: Z01.818 Encounter for other preprocedural examination (principal); M16.11 Unilateral primary osteoarthritis, right hip
CPT/HCPCS: 71046; 80048; 81001; 85025; 85610; 86850; 86900; 86901; 87081; 93005; 93010